=== PATIENT | female | born 1940 ===

== ENCOUNTER 2020-12-24 11:00 | Outpatient (RCR) | payer MEDICARE, MEDICAID ==
[2020-12-22 13:18] VITALS: BP 156/95; PULSE 84; TEMP 97.7
[2020-12-22 14:20] VITALS: BP 143/74; PULSE 74; PULSE 81
[2020-12-22 14:35] VITALS: BP 139/78; PULSE 77
[2020-12-22 14:50] VITALS: BP 122/90; PULSE 77
[2020-12-22 15:15] VITALS: BP 132/90; PULSE 74
--- NOTE | 2020-12-22 16:00 | NUR ---
pt back to [facility] after [facility]uc med, sits up in w/c, takes water, no changes, Allison called earlier to pick remover pt. Transporter here for pt at 1630, gave instruction sheet to her about care of site, no tub baths, also pt is scheduled to return tomorrow in radiology. Pt discharged via w/c at this time with care coordinator
[~2020-12-24] VITALS: Ht 154.9 cm; Wt 65.9 kg
[~2020-12-24 11:00] MED LIST: ASPERCREME85G TP; DULCOLAX S10 MG/SUPP RC; FLEET ENEM1 BOT/133 RC; HYDROCORTISON28.4 GM TP; MILK OF MA400 MG/52 PO; MIRALAX PA17 GM/Dose PO; MULTIPLE VITAMI1 TA1 PO; OCEAN NASAL SPR45 ML NS; PRESERVISION1 SGL PO; REFRESH OPTIVE10 M2 OP; SINEMET 25/101 UDTAB PO; TYLENOL 325MG325 MG
== END 2021-03-22 | disposition home or self-care (01) ==
LOC: COL.RAD
DX: G91.2 (Idiopathic) normal pressure hydrocephalus (principal)
CPT/HCPCS: A9548